=== PATIENT | male | born 1985 | race Caucasian/White ===

== ENCOUNTER 2020-11-21 18:23 | Emergency (ER) | payer MEDICARE ==
[2020-11-21 21:05] LABS: HEMOGLOBIN 15.9 gm/dl (14.0-17.5); RED BLOOD COUNT 5.54 M/UL (4.20-5.50); WHITE BLOOD COUNT 13.1 K/UL (4.5-11.0)
[2020-11-21 21:33] LABS: BUN/CREATININE RATIO 10 (0-10)
[2020-11-21] MEDS ORDERED: BENZONATATE200 MG PO (23:49)
== END 2020-11-22 00:13 | disposition home or self-care (01) ==
LOC: ER1 18:23
PROVIDERS: Emergency Medicine
DX: R07.89 Other chest pain (principal); R05 Cough; J02.9 Acute pharyngitis, unspecified; M79.10 Myalgia, unspecified site; R00.0 Tachycardia, unspecified; Z20.828 Contact with and (suspected) exposure to other viral communicable diseases
CPT/HCPCS: 71045; 80053; 83605; 85025; 85379; 87040; 87081; 87880; 93005; 96374; 99285; J1885; Q9967; U0003